=== PATIENT | female | born 1995 | race African-American/Black ===

== ENCOUNTER 2017-02-21 19:27 | Emergency (ER) | payer MEDICAID ==
[~2017-02-21] VITALS: Ht 152.4 cm; Wt 48.1 kg
[~2017-02-21 19:27] MED LIST: ADVAIR; SINGULAIR
[2017-02-21 20:10] LABS: Urine RBC None Seen /hpf (0 - 4)
[2017-02-21] MEDS ORDERED: ONDANSETRON HCL 4 MG/2 ML VIAL IM ONE (20:30)
[2017-02-21 20:40] LABS: Urine Bilirubin Negative (Negative); Urine Blood Negative /uL (Negative); Urine Color Yellow (Yellow); Urine Glucose Normal (Normal); Urine Nitrite Negative (Negative); Urine Squamous Epithelial Cell FEW /hpf (<5); Urine Urobilinogen Normal (Negative)
[2017-02-21 20:45] LABS: Urine Ketone 2+ (Negative)
[2017-02-21 21:50] VITALS: BP 125/79
== END 2017-02-21 20:44 | disposition home or self-care (01) ==
LOC: ER 19:28
DX: R55 Syncope and collapse (principal); R11.0 Nausea
CPT/HCPCS: 81001; 81025; 93005; 96372; 99285; J2405

== ENCOUNTER 2022-08-11 10:17 | Emergency (ER) | payer SELFPAY ==
[~2022-08-11] VITALS: Ht 144.8 cm; Wt 40.0 kg
[2022-08-11 11:56] VITALS: BP 134/83
[2022-08-11] MEDS ORDERED: ACETAMINOPHEN 500 MG TAB PO ONE (12:00)
[2022-08-11] MEDS ORDERED: LIDOCAINE 1% HCL (LOCAL ANESTH.) INJ 20ML MDV ID ONE (12:15)
[2022-08-11] MEDS ORDERED: IBUP600T27 PO (13:07)
[2022-08-11] MEDS ORDERED: CEPH-510 PO (13:08)
== END 2022-08-11 13:50 | disposition home or self-care (01) ==
LOC: ER 10:17
DX: S01.81XA Laceration without foreign body of other part of head, initial encounter (principal); X58.XXXA Exposure to other specified factors, initial encounter; Y93.89 Activity, other specified; Y92.89 Other specified places as the place of occurrence of the external cause; Y99.8 Other external cause status
CPT/HCPCS: 12013; 99283; J2001

== ENCOUNTER 2022-08-19 09:24 | Emergency (ER) | payer SELFPAY ==
[~2022-08-19] VITALS: Ht 149.9 cm; Wt 42.0 kg
[~2022-08-19 09:24] MED LIST changes: +CEPH-510 PO; +IBUP600T27 PO
[2022-08-19 09:55] VITALS: BP 103/64
== END 2022-08-19 10:54 | disposition home or self-care (01) ==
LOC: ER 09:24
DX: S01.81XD Laceration without foreign body of other part of head, subsequent encounter (principal); Z79.1 Long term (current) use of non-steroidal anti-inflammatories (NSAID); Z79.899 Other long term (current) drug therapy; X58.XXXD Exposure to other specified factors, subsequent encounter